=== PATIENT | male | born 1995 | race Caucasian/White ===

== ENCOUNTER → 2019-06-03 | Outpatient (CLI) | payer OTHER | LOC: MHCPAIN 09:36 | DX: M47.814 Spondylosis without myelopathy or radiculopathy, thoracic region (principal) | CPT/HCPCS: G0463 ==

== ENCOUNTER → 2019-10-22 | Outpatient (CLI) | payer OTHER | LOC: MHCPAIN 13:45 | DX: M54.5 Low back pain (principal); M54.6 Pain in thoracic spine; G89.29 Other chronic pain | CPT/HCPCS: G0463 ==